=== PATIENT | female | born 1950 | race Hispanic/Latino ===

== ENCOUNTER 2017-07-20 14:16 | Emergency (ER) | payer OTHER ==
[~2017-07-20] VITALS: Ht 154.9 cm; Wt 89.4 kg
[2017-07-20 15:33] LABS: BASOPHILS # (AUTO) 0.1 (0.0-0.1); BASOPHILS % 0.6 % (0.0-1.0); EOSINOPHILS # (AUTO) 0.2 (0.0-0.4); EOSINOPHILS % 2.4 % (0.0-6.0); HEMATOCRIT 41.4 % (34.2-44.1); HEMOGLOBIN 13.9 g/dL (12.0-16.0); LYMPHOCYTES # (AUTO) 2.7 (1.0-3.2); LYMPHOCYTES % 27.2 % (18.0-39.1); MEAN CORPUSCULAR HGB CONC 33.6 g/dL (31-35); MEAN CORPUSCULAR VOLUME 83.3 fL (81-99); MONOCYTES # (AUTO) 0.7 (0.2-0.8); MONOCYTES % 6.8 % (4.4-11.3); NEUTROPHILS # (AUTO) 6.2 (2.1-6.9); NEUTROPHILS % 62.7 % (38.7-80.0); PLATELET COUNT 196 x10e3/uL (140-360); RED BLOOD COUNT 4.97 x10e6/uL (3.6-5.1); RED CELL DISTRIBUTION WIDTH 14.4 % (11.7-14.4)
[2017-07-20 15:50] LABS: ALANINE AMINOTRANSFERASE 37 IU/L (0-55); ALBUMIN 3.8 g/dL (3.5-5.0); ALBUMIN/GLOBULIN RATIO 1.1 (0.8-2.0); ALKALINE PHOSPHATASE 93 IU/L (40-150); BLOOD UREA NITROGEN 20 mg/dL (7-26); BUN/CREATININE RATIO 25 (6-25); CALCIUM 11.1 mg/dL (8.4-10.2); CARBON DIOXIDE 22 mmol/L (22-29); CHLORIDE 106 mmol/L (98-107); CREATINE KINASE 22 IU/L (29-168); CREATININE, SERUM 0.81 mg/dL (0.57-1.11); EST GLOMERULAR FILTRATION RATE > 60 ML/MIN (60-); GLUCOSE 226 mg/dL (74-118); SODIUM 138 mmol/L (136-145)
--- NOTE | 2017-07-20 16:42 | Diagnostic Imaging Report ---
PROCEDURE: A single AP view of the chest. COMPARISON: None. INDICATIONS: DIABETIC CRISIS FINDINGS: Lines/tubes: None. Lungs: Lungs are mildly hypoinflated, but grossly clear. No consolidation or pulmonary edema. Pleura: There is no pleural effusion or pneumothorax. Heart and mediastinum: The heart and the mediastinum are unremarkable. Bones: No acute bony abnormality. IMPRESSION: 1. mild hypoinflated lungs, without acute cardiopulmonary abnormalities. Chalo Gonzalez M.D. Dictated by: Chalo Gonzalez M.D. on 07/20/2017 at 16:44 Electronically approved by: Chalo Gonzalez M.D. on 07/20/2017 at 16:44
[2017-07-20 16:45] LABS: CLARITY,URINE CLEAR (CLEAR); COLOR,URINE YELLOW (YELLOW); LEUKOCYTE ESTERASE ,URINE NEGATIVE (NEGATIVE); NITRITE,URINE NEGATIVE (NEGATIVE)
[2017-07-20 16:46] LABS: BILIRUBIN,URINE NEGATIVE (NEGATIVE); KETONES,URINE NEGATIVE (NEGATIVE); PROTEIN,URINE DIPSTICK NEGATIVE (NEGATIVE); URINE UROBILINOGEN 0.2 mg/dL (0.2 - 1)
[2017-07-20 16:49] LABS: BACTERIA,URINE MODERATE /HPF; EPITHELIAL CELLS,URINE MANY /LPF
[2017-07-20] MEDS ORDERED: SODIUM CHLORIDE 0.9% 500ML 500 ML IV ONE (17:00)
[2017-07-20] MEDS ORDERED: INSULIN REGULAR, HUMAN 100 UNIT/1 ML 3ML VIAL SQ ONE (17:45)
[2017-07-20] MEDS ORDERED: ACETAMINOPHEN 325 MG TAB PO ONE (17:45)
[2017-07-20 18:37] VITALS: BP 132/96
== END 2017-07-20 18:55 | disposition home or self-care (01) ==
LOC: ER 14:21
DX: E11.65 Type 2 diabetes mellitus with hyperglycemia (principal); R51 Headache; R07.9 Chest pain, unspecified; I10 Essential (primary) hypertension
CPT/HCPCS: 36415; 71045; 80053; 81001; 82550; 82553; 82948; 83036; 84484; 85025; 93005; 99284; J7040

== ENCOUNTER → 2018-04-12 | Day surgery (SDC) | payer OTHER ==
[2018-04-10 15:41] LABS: BASOPHILS # (AUTO) 0.1 (0.0-0.1); BASOPHILS % 0.5 % (0.0-1.0); EOSINOPHILS # (AUTO) 0.1 (0.0-0.4); EOSINOPHILS % 1.2 % (0.0-6.0); HEMOGLOBIN 14.4 g/dL (12.0-16.0); LYMPHOCYTES # (AUTO) 2.8 (1.0-3.2); MEAN CORPUSCULAR HEMOGLOBIN 28.3 pg (28-32); MEAN CORPUSCULAR HGB CONC 33.5 g/dL (31-35); MEAN CORPUSCULAR VOLUME 84.5 fL (81-99); MONOCYTES # (AUTO) 0.7 (0.2-0.8); MONOCYTES % 6.1 % (4.4-11.3); NEUTROPHILS # (AUTO) 7.8 (2.1-6.9); NEUTROPHILS % 67.9 % (38.7-80.0); PLATELET COUNT 222 x10e3/uL (140-360); RED BLOOD COUNT 5.09 x10e6/uL (3.6-5.1); RED CELL DISTRIBUTION WIDTH 13.7 % (11.7-14.4)
[~2018-04-12] MED LIST: FENTANYL CITRATE/PF 100MCG/2 ML INJ ONE; LEVEMIR100 UNIT/1; LOSARTAN POTASS25 MG; METFORMIN HCL500 MG PO; MIDAZOLAM HCL 2 MG/2 ML VIAL ONE; NOVALOG; OMEPRAZOLE40 MG; PROPOFOL IV EMULSION 10 MG/ML 50 ML VIAL ONE
--- OUTSIDE RECORDS SUMMARY | 2018-04-12 05:15 | XMS REPORT ---
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 Allergies, Adverse Reactions, Alerts This patient has no known allergies or adverse reactions. Medications This patient has no known medications. Encounters Start Date/Time End Date/Time Encounter Type Admission Type Attending [facility] Care Department Encounter ID 2018-08-01 00:00:00 2018-08-01 00:00:00 Outpatient [facility] [id number] 2018-05-08 00:00:00 2018-05-08 00:00:00 Outpatient [facility] [id number] 2018-05-02 00:00:00 2018-05-02 00:00:00 Outpatient [facility] [id number] 2018-03-27 10:09:05 2018-03-27 10:09:05 Outpatient [facility] [id number] 2018-03-27 00:00:00 2018-03-27 00:00:00 Outpatient [facility] [id number] 2018-03-19 12:16:59 2018-03-19 12:16:59 Outpatient [facility] [id number] 2018-02-26 09:44:41 2018-02-26 09:44:41 Outpatient [facility] [id number] 2018-02-26 09:42:30 2018-02-26 09:42:30 Outpatient [facility] [id number] 2018-02-23 14:44:07 2018-02-23 14:44:07 Outpatient [facility] [id number] 2018-02-19 10:38:11 2018-02-19 10:38:11 Outpatient [facility] [id number] 2018-02-06 00:00:00 2018-02-06 00:00:00 Outpatient [facility] [id number] 2017-12-25 09:55:37 2017-12-25 09:55:37 Outpatient [facility] [id number] 2017-12-25 00:00:00 2017-12-25 00:00:00 Outpatient [facility] [id number] 2017-12-20 15:32:15 2017-12-20 15:32:15 Outpatient [facility] [id number] 2017-12-18 00:00:00 2017-12-18 00:00:00 Outpatient [facility] [id number] 2017-11-28 13:56:47 2017-11-28 13:56:47 Outpatient [facility] [id number] 2017-11-06 10:40:32 2017-11-06 10:40:32 Outpatient [facility] [id number] 2017-10-11 08:15:08 2017-10-11 08:15:08 Outpatient [facility] [id number] 2017-10-11 00:00:00 2017-10-11 00:00:00 Outpatient [facility] [id number] 2017-10-11 00:00:00 2017-10-11 00:00:00 Outpatient [facility] [id number] 2017-10-09 08:47:47 2017-10-09 08:47:47 Outpatient [facility] [id number] 2017-10-05 10:53:32 2017-10-05 10:53:32 Outpatient [facility] [id number] 2017-10-03 14:20:33 2017-10-03 14:20:33 Outpatient [facility] [id number] 2017-10-03 09:19:33 2017-10-03 09:19:33 Outpatient [facility] [id number] 2017-09-29 00:00:00 2017-09-29 00:00:00 Outpatient [facility] [id number] 2017-09-27 09:20:39 2017-09-27 09:20:39 Outpatient [facility] [id number] 2017-09-27 07:47:31 2017-09-27 07:47:31 Outpatient [facility] [id number] 2017-09-27 00:00:00 2017-09-27 00:00:00 Outpatient [facility] [id number] 2017-09-25 08:55:23 2017-09-25 08:55:23 Outpatient [facility] [id number] 2017-09-22 00:00:00 2017-09-22 00:00:00 Outpatient [facility] [id number] 2017-09-22 00:00:00 2017-09-22 00:00:00 Outpatient [facility] [id number] 2017-09-21 00:00:00 2017-09-21 00:00:00 Outpatient [facility] [id number] 2017-09-19 08:25:41 2017-09-19 08:25:41 Outpatient [facility] [id number] 2017-09-19 00:00:00 2017-09-19 00:00:00 Outpatient [facility] [id number] 2017-09-15 00:00:00 2017-09-15 00:00:00 Outpatient [facility] [id number] 2017-09-15 00:00:00 2017-09-15 00:00:00 Outpatient [facility] [id number] 2017-09-14 09:39:38 2017-09-14 09:39:38 Outpatient [facility] [id number] 2017-09-14 08:53:39 2017-09-14 08:53:39 Outpatient [facility] [id number] 2017-09-14 00:00:00 2017-09-14 00:00:00 Outpatient [facility] [id number] 2017-08-21 09:31:16 2017-08-21 09:31:16 Outpatient [facility] [id number] 2017-08-21 09:28:32 2017-08-21 09:28:32 Outpatient [facility] [id number] 2017-07-25 14:19:57 2017-07-25 14:19:57 Outpatient [facility] [id number] Results Test Description Test Time Test Comments Text Results Atomic Results Result Comments CHEST SINGLE (PORTABLE) [place] [address] Patient Name: TOMA MADDEN MR #: [id number] : 1950 Age/Sex: 67/F Req #: [id number] Adm Physician: Ordered by: OBI ST MD Report #: [id number] Location: ER Room/Bed: Procedure: [id number] DX/CHEST SINGLE (PORTABLE) Exam Date: Exam Time: REPORT STATUS: Signed PROCEDURE: A single AP view of the chest. COMPARISON: None. INDICATIONS: DIABETIC CRISIS FINDINGS: Lines/tubes: None. Lungs: Lungs are mildly hypoinflated, but grossly clear. No consolidation or pulmonary edema. Pleura: There is no pleural effusion or pneumothorax. Heart and mediastinum: The heart and the mediastinum are unremarkable. Bones: No acute bony abnormality. IMPRESSION: 1. mild hypoinflated lungs, without acute cardiopulmonary abnormalities. Nina Gonzalez M.D. Dictated by: Nina Gonzalez M.D. on 2017 at 16:44 Electronically approved by: Nina Gonzalez M.D. on 2017 at 16:44 Dictated By: NINA GONZALEZ MD [id number] Transcribed By: DAYANA on 07/20/171643 COPY TO: OBI ST MD
[2018-04-12 09:05] VITALS: BP 129/84
== END | disposition home or self-care (01) ==
LOC: OR 05:11
PROVIDERS: ATTEND Internal Medicine Gastroenterology
DX: K29.70 Gastritis, unspecified, without bleeding (principal); D12.3 Benign neoplasm of transverse colon; K58.9 Irritable bowel syndrome, unspecified; K21.9 Gastro-esophageal reflux disease without esophagitis; K64.8 Other hemorrhoids; Z71.3 Dietary counseling and surveillance; I10 Essential (primary) hypertension; E11.9 Type 2 diabetes mellitus without complications; E66.9 Obesity, unspecified; Z79.4 Long term (current) use of insulin; H54.7 Unspecified visual loss; M06.9 Rheumatoid arthritis, unspecified; I83.90 Asymptomatic varicose veins of unspecified lower extremity; I20.9 Angina pectoris, unspecified; Z68.32 Body mass index [BMI] 32.0-32.9, adult
CPT/HCPCS: 36415 ×2; 43239; 45385; 82948; 85025; 88305; 88312; 93005; J2250; J2704; 45378